=== PATIENT | female | born 1980 | race Caucasian/White ===

== ENCOUNTER 2017-03-27 04:47 | Emergency (ER) | payer MEDICARE, MEDICAID, SELFPAY ==
--- NOTE | 2017-03-27 05:36 | EDM.PDOC ---
ED HPI GENERAL MEDICAL PROBLEM - General Chief Complaint: Neurological Problem Stated Complaint: seizure Time Seen by Provider: 03/27/17 05:25 Source of Information: Reports: Patient, EMS History Limitations: Reports: No Limitations - History of Present Illness INITIAL COMMENTS - FREE TEXT/NARRATIVE: Ambulance was called to home by boyienangeline and he reported that she was acting weird and questioned if she had a seizure. EMT reports that she was alert but very diaphoretic. She denied any pain there. When arriving here she was alert and oriented and states that her and her boyfriend had a fight and he called them to make her mad. She denies any pain. Doesn't now why she was up at this time and states that she was just going to go to bed when the ambulance arrived. She was slightly diaphoretic at the time. Not incontinent. She denies having a seizure. Onset: Today - Related Data Allergies Allergy/AdvReac Type Severity Reaction Status Date / Time clindamycin Allergy Burning on Verified 11/16/16 03:20 Urination Home Meds: Home Meds Gabapentin [Neurontin] 300 mg PO BEDTIME 09/19/16 [History] Lurasidone HCl [Latuda] 60 mg PO DAILY 09/19/16 [History] Propranolol HCl [Propranolol] 20 mg PO BID 09/19/16 [History] lamoTRIgine [Lamictal] 200 mg PO DAILY 09/19/16 [History] Venlafaxine [Effexor] 75 mg PO DAILY 11/16/16 [History] buPROPion [Wellbutrin] 300 mg PO DAILY 11/16/16 [History] traZODone 50 mg PO BEDTIME 11/16/16 [History] OLANZapine [Olanzapine] 5 mg PO BID 03/27/17 [History] Prazosin HCl [Prazosin] 1 mg PO BEDTIME 03/27/17 [History] Past Medical History Cardiovascular History: Reports: Heart Murmur Gastrointestinal History: Reports: GERD, PUD Genitourinary History: Reports: None Musculoskeletal History: Reports: Other (See Below) Other Musculoskeletal History: costocondritis Neurological History: Reports: Headaches, Chronic, Migraines, Vertigo Other Neuro History: hX OF ADHD Psychiatric History: Reports: Addiction, ADHD, Anxiety, Depression, Mood Swings , Psych Hospitalization(s) Hematologic History: Reports: Anemia, Blood Transfusion(s) - Past Surgical History HEENT Surgical History: Reports: Myringotomy w Tube(s) Female Surgical History: Reports: Section Musculoskeletal Surgical History: Reports: Carpal Tunnel Social & Family History - Family History Family Medical History: Noncontributory - Tobacco Use Smoking Status *Q: Current Every Day Smoker Years of Tobacco use: 22 Packs/Tins Daily: 1 - Caffeine Use Caffeine Use: Reports: None - Recreational Drug Use Recreational Drug Use: No Drug Use in Last 12 Months: Yes Recreational Drug Use Frequency: Not Used In Over 6 Months - Living Situation & Occupation Living situation: Reports: Single, with Significant Other Occupation: Unemployed ED ROS GENERAL - Review of Systems Review Of Systems: See Below Constitutional: Reports: Fever, Diaphoresis HEENT: Reports: No Symptoms Respiratory: Reports: Cough. Denies: Sputum Cardiovascular: Reports: No Symptoms GI/Abdominal: Reports: No Symptoms : Reports: No Symptoms Musculoskeletal: Reports: No Symptoms Skin: Reports: No Symptoms ED EXAM, NEURO - Physical Exam Exam: See Below Exam Limited By: No Limitations General Appearance: Alert, WD/WN, No Apparent Distress Ears: Normal External Exam, Normal Canal Nose: Normal Inspection Throat/Mouth: Normal Inspection, Normal Oropharynx, No Airway Compromise Head Exam: Atraumatic Neck: Normal Inspection, Supple Respiratory/Chest: No Respiratory Distress, Rhonchi, Wheezing Cardiovascular: Regular Rate, Rhythm GI/Abdominal: Normal Bowel Sounds, Soft Neurological: Alert, Oriented x 3 Course - Vital Signs Last Recorded V/S: Last Vital Signs Temp 99.4 F 03/27/17 05:49 Pulse 96 03/27/17 05:49 Resp 20 03/27/17 05:49 BP 128/96 H 03/27/17 05:49 Pulse Ox 96 03/27/17 05:49 - Orders/Labs/Meds Orders: Active Orders 24 hr Category Date Time Status DRUG SCREEN URINE BIORAD [URCHEM] Stat Lab 03/27/17 05:32 Uncollected LAMOTRIGINE [REF] Stat Lab 03/27/17 05:34 Ordered Labs: Laboratory Tests 03/27/17 03/27/17 03/27/17 Range/Units 05:33 05:33 05:45 WBC 12.6 H (5.0-10.0) 10^3/uL RBC 4.03 (4.00-5.50) 10^6/uL Hgb 11.2 L (12.0-16.0) g/dL Hct 35.4 L (37.0-47.0) % MCV 87.8 (82.0-94.0) fL MCH 27.8 (27.0-32.0) pg MCHC 31.6 L (33.0-38.0) g/dL RDW Coeff of Иван 15.6 H (11.0-15.0) % Plt Count 494 H (150-400) 10^3/uL Neut % (Auto) 72.0 (35-85) % Lymph % (Auto) 15.8 (10-55) % [place] % (Auto) 8.7 (0-16) % Eos % (Auto) 3.3 (0-5) % Baso % (Auto) 0.2 (0-3) % Neut # (Auto) 9.04 H (1.80-7.00) 10^3/uL Lymph # (Auto) 1.98 (1.00-4.80) 10^3/uL [place] # (Auto) 1.09 H (0.00-0.80) 10^3/uL Eos # (Auto) 0.42 (0.00-0.45) 10^3/uL Baso # (Auto) 0.03 10^3/uL Sodium 138 (136-145) mEq/L Potassium 4.6 (3.5-5.0) mEq/L Chloride 101 (98-106) mEq/L Carbon Dioxide 27 (21-32) mmol/L BUN 13 (7-18) mg/dL Creatinine 1.1 H (0.6-1.0) mg/dL Est Cr Clr Drug Dosing 64.23 mL/min Estimated GFR (MDRD) 57 L (>=60) mL/min Glucose 112 H (75-99) mg/dL Calcium 8.2 L (8.4-10.1) mg/dL Urine Color Yellow (YELLOW) Urine Appearance Clear (CLEAR) Urine pH 6.5 (4.5-8.0) Ur Specific [place] 1.020 (1.003-1.020) Urine Protein Negative (NEGATIVE) mg/dL Urine Glucose (UA) Negative (NEGATIVE) mg/dL Urine Ketones Negative (NEGATIVE) mg/dL Urine Occult Blood Negative (NEGATIVE) Urine Nitrite Negative (NEGATIVE) Urine Bilirubin Negative (NEGATIVE) Urine Urobilinogen 0.2 (0.2-1.0) EU/dL Ur Leukocyte Esterase Negative (NEGATIVE) Urine RBC Not seen (0-5) /HPF Urine WBC Not seen (0-5) /HPF - Re-Assessments/Exams Free Text/Narrative Re-Assessment/Exam: 03/27/17 06:37 In to review labs with pt. Elevated WBC noted with low grade temp and wheezing noted Departure - Departure Time of Disposition: 06:38 Disposition: Home, Self-Care 01 Condition: good Clinical Impression: Bronchitis - Discharge Information Forms: ED Department Discharge Additional Instructions: z-shara- take 2 tablets when you get them this morning then 1 tablet daily for the next 4 days Stop smoking push fluids as much as possible Recheck in the clinic if not improving. - Problem List & Annotations (1) Bronchitis SNOMED Code(s): 57435629 Code(s): J40 - BRONCHITIS, NOT SPECIFIED ACUTE OR CHRONIC Status: Acute Priority: High Current Visit: Yes - Problem List Review Problem List Initiated/Reviewed/Updated: Yes - My Orders Last 24 Hours: My Active Orders 03/27/17 05:32 DRUG SCREEN URINE BIORAD [URCHEM] Stat 03/27/17 05:34 LAMOTRIGINE [REF] Stat - Assessment/Plan Last 24 Hours: My Active Orders 03/27/17 05:32 DRUG SCREEN URINE BIORAD [URCHEM] Stat 03/27/17 05:34 LAMOTRIGINE [REF] Stat
[2017-03-27 05:47] VITALS: BP 128/96
== END 2017-03-27 06:50 | disposition home or self-care (01) ==
LOC: CC.ED 04:47
DX: J40 Bronchitis, not specified as acute or chronic (principal); K21.9 Gastro-esophageal reflux disease without esophagitis; G43.909 Migraine, unspecified, not intractable, without status migrainosus; F41.9 Anxiety disorder, unspecified; F32.9 Major depressive disorder, single episode, unspecified; F17.210 Nicotine dependence, cigarettes, uncomplicated; Z88.1 Allergy status to other antibiotic agents; Z79.899 Other long term (current) drug therapy; Z98.890 Other specified postprocedural states
CPT/HCPCS: 36415; 80048; 80175; 80305; 81001; 85025; 99284

== ENCOUNTER 2017-05-25 00:13 | Emergency (ER) | payer MEDICARE, MEDICAID, SELFPAY ==
[2017-05-25 00:29] VITALS: BP 118/67
[2017-05-25] MEDS ORDERED: Take Home: Acetaminophen/HYDROcodone 325-5 MG, 2 Tab Pack PO ONE (00:51)
[2017-05-25] MEDS ORDERED: Ciprofloxacin 500 MG Tab PO ONE (00:52)
--- NOTE | 2017-05-25 00:56 | EDM.PDOC ---
ED HPI GENERAL MEDICAL PROBLEM - General Chief Complaint: Back Pain or Injury Stated Complaint: LEFT LOWER BACK PAIN Time Seen by Provider: 05/25/17 00:15 - History of Present Illness INITIAL COMMENTS - FREE TEXT/NARRATIVE: has been having severe left lower back pain for the last week, NSAIDS are not woring. Onset: Gradual Duration: Day(s): Location: Reports: Back Improves with: Reports: None Worsens with: Reports: Movement Associated Symptoms: Reports: No Other Symptoms Left Lower Back Pain Score (Numeric/FACES): 10 - Related Data Allergies Allergy/AdvReac Type Severity Reaction Status Date / Time clindamycin Allergy Nausea Verified 05/25/17 00:31 Home Meds: Home Meds Gabapentin [Neurontin] 300 mg PO BEDTIME 09/19/16 [History] Lurasidone HCl [Latuda] 60 mg PO DAILY 09/19/16 [History] Propranolol HCl [Propranolol] 20 mg PO BID 09/19/16 [History] lamoTRIgine [Lamictal] 200 mg PO DAILY 09/19/16 [History] Venlafaxine [Effexor] 75 mg PO DAILY 11/16/16 [History] buPROPion [Wellbutrin] 300 mg PO DAILY 11/16/16 [History] traZODone 50 mg PO BEDTIME 11/16/16 [History] OLANZapine [Olanzapine] 5 mg PO BID 03/27/17 [History] Prazosin HCl [Prazosin] 1 mg PO BEDTIME 03/27/17 [History] Past Medical History Cardiovascular History: Reports: Heart Murmur Gastrointestinal History: Reports: GERD, PUD Genitourinary History: Reports: None Musculoskeletal History: Reports: Other (See Below) Other Musculoskeletal History: costocondritis Neurological History: Reports: Headaches, Chronic, Migraines, Vertigo Other Neuro History: hX OF ADHD Psychiatric History: Reports: Addiction, ADHD, Anxiety, Depression, Mood Swings , Psych Hospitalization(s) Hematologic History: Reports: Anemia, Blood Transfusion(s) - Past Surgical History HEENT Surgical History: Reports: Myringotomy w Tube(s) Female Surgical History: Reports: Section Musculoskeletal Surgical History: Reports: Carpal Tunnel Social & Family History - Family History Family Medical History: Noncontributory - Tobacco Use Smoking Status *Q: Current Every Day Smoker Years of Tobacco use: 22 Packs/Tins Daily: 1 Second Hand Smoke Exposure: Yes - Caffeine Use Caffeine Use: Reports: None - Recreational Drug Use Recreational Drug Use: No Drug Use in Last 12 Months: Yes Recreational Drug Use Frequency: Not Used In Over 6 Months - Living Situation & Occupation Living situation: Reports: Single, with Significant Other Occupation: Unemployed ED ROS GENERAL - Review of Systems Review Of Systems: ROS reveals no pertinent complaints other than HPI. ED EXAM,LOWER BACK PAIN/INJURY - Physical Exam Exam: See Below Exam Limited By: No Limitations General Appearance: Alert, WD/WN Throat/Mouth: Normal Inspection Head: Atraumatic Neck: Normal Inspection Respiratory/Chest: No Respiratory Distress Cardiovascular: Normal Peripheral Pulses GI/Abdominal: Normal Bowel Sounds Rectal (Female) Exam: Normal Exam Back Exam: Normal Inspection Extremities: Normal Inspection Neurological: Alert, Normal Mood/Affect Psychiatric: Normal Affect Skin Exam: Warm, Dry Course - Vital Signs Last Recorded V/S: Last Vital Signs Temp 97.2 F 05/25/17 00:26 Pulse 70 05/25/17 00:26 Resp 20 05/25/17 00:26 BP 118/67 05/25/17 00:26 Pulse Ox 96 05/25/17 00:26 - Orders/Labs/Meds Orders: Active Orders 24 hr Category Date Time Status Lumbar Spine 2 or 3V [CR] Stat Exams 05/25/17 00:14 Taken Ciprofloxacin [Ciprofloxacin HCl] Med 05/25/17 00:52 Once 500 mg PO 0700,1900 ONE Medication Orders Ciprofloxacin (Ciprofloxacin Hcl) 500 mg PO 0700,1900 ONE Stop: 05/25/17 00:53 Labs: Laboratory Tests 05/25/17 Range/Units 00:16 Urine Color [place] (YELLOW) Urine Appearance Slightly cloudy (CLEAR) Urine pH 5.5 (4.5-8.0) Ur Specific [place] 1.006 (1.003-1.020) Urine Protein Trace H (NEGATIVE) mg/dL Urine Glucose (UA) Negative (NEGATIVE) mg/dL Urine Ketones Negative (NEGATIVE) mg/dL Urine Occult Blood Large H (NEGATIVE) Urine Nitrite Negative (NEGATIVE) Urine Bilirubin Negative (NEGATIVE) Urine Urobilinogen 0.2 (0.2-1.0) EU/dL Ur Leukocyte Esterase Trace H (NEGATIVE) Urine RBC >100 H (0-5) /HPF Urine WBC 5-10 H (0-5) /HPF Ur Squamous Epith Cells Few H (NOT SEEN) /HPF Urine Bacteria Occasional H (NOT SEEN) /HPF Meds: Medications Generic Name Dose Route Start Last Admin Trade Name Freq PRN Reason Stop Dose Admin Ciprofloxacin 500 mg 05/25/17 00:52 Ciprofloxacin Hcl PO 05/25/17 00:53 699,0 ONE Discontinued Medications Generic Name Dose Route Start Last Admin Trade Name Freq PRN Reason Stop Dose Admin Hydrocodone Bitart/Acetaminophen 3 packet 05/25/17 00:51 Take Home: Acetaminophen/Hydrocod, 2 Tab Pack PO 05/25/17 00:52 ONETIME ONE Departure - Departure Time of Disposition: 00:54 Disposition: Home, Self-Care 01 Condition: Good Clinical Impression: Lumbago, UTI (urinary tract infection) - Discharge Information Instructions: Back Injury Prevention, [id number] Forms: ED Department Discharge - My Orders Last 24 Hours: My Active Orders 05/25/17 00:14 Lumbar Spine 2 or 3V [CR] Stat 05/25/17 00:52 Ciprofloxacin [Ciprofloxacin HCl] 500 mg PO 699,0 ONE - Assessment/Plan Last 24 Hours: My Active Orders 05/25/17 00:14 Lumbar Spine 2 or 3V [CR] Stat 05/25/17 00:52 Ciprofloxacin [Ciprofloxacin HCl] 500 mg PO 699,1900 ONE
[2017-05-25] MEDS ORDERED: Acetaminophen/HYDROcodone 325-5 MG Tab PO ONE (10:00)
== END 2017-05-25 01:45 | disposition home or self-care (01) ==
LOC: CC.ED 00:13
DX: N39.0 Urinary tract infection, site not specified (principal); K21.9 Gastro-esophageal reflux disease without esophagitis; F32.9 Major depressive disorder, single episode, unspecified; F17.210 Nicotine dependence, cigarettes, uncomplicated; F90.2 Attention-deficit hyperactivity disorder, combined type; F41.9 Anxiety disorder, unspecified; Z79.899 Other long term (current) drug therapy; Z88.1 Allergy status to other antibiotic agents; Z96.22 Myringotomy tube(s) status
CPT/HCPCS: 72100; 81001; 99283; A9270

== ENCOUNTER 2017-06-07 16:10 | Emergency (ER) | payer MEDICARE, MEDICAID, SELFPAY ==
[2017-06-07 16:16] VITALS: BP 161/113
--- NOTE | 2017-06-07 17:05 | EDM.PDOC ---
ED HPI GENERAL MEDICAL PROBLEM - General Chief Complaint: General Stated Complaint: left side pain Time Seen by Provider: 06/07/17 16:30 Source of Information: Reports: Patient, RN History Limitations: Reports: No Limitations - History of Present Illness Onset Date: 02/03/17 Onset Time: 08:00 Duration: Chronic, Waxing/Waning Location: Reports: Abdomen, Lower Extremity, Left Quality: Reports: Ache, Burning, Pressure Severity: Moderate Improves with: Reports: Rest, Other (Minimal relief with Tramadol) Worsens with: Reports: Movement (Coughing) Associated Symptoms: Reports: Cough, cough w sputum Treatments [employer]: Reports: Acetaminophen, NSAIDS, Other Medication(s) Left Chest Pain Score (Numeric/FACES): 8 - Related Data Allergies Allergy/AdvReac Type Severity Reaction Status Date / Time clindamycin Allergy Nausea Verified 05/25/17 00:31 Home Meds: Home Meds Gabapentin [Neurontin] 300 mg PO BEDTIME 09/19/16 [History] Propranolol HCl [Propranolol] 20 mg PO BID 09/19/16 [History] lamoTRIgine [Lamictal] 200 mg PO DAILY 09/19/16 [History] Venlafaxine [Effexor] 75 mg PO DAILY 11/16/16 [History] traZODone 50 mg PO BEDTIME 11/16/16 [History] OLANZapine [Olanzapine] 5 mg PO BID 03/27/17 [History] Prazosin HCl [Prazosin] 1 mg PO BEDTIME 03/27/17 [History] Lisdexamfetamine Dimesylate [Vyvanse] 40 mg PO DAILY 06/07/17 [History] Omeprazole 20 mg PO DAILY 06/07/17 [History] atoMOXetine HCl [Strattera] 40 mg PO BID 06/07/17 [History] traMADol [Ultram] 50 mg PO Q4H 06/07/17 [History] valACYclovir [Valtrex] 1,000 mg PO DAILY 06/07/17 [History] Past Medical History Cardiovascular History: Reports: Heart Murmur Respiratory History: Reports: Bronchitis, Recurrent Gastrointestinal History: Reports: GERD, PUD Genitourinary History: Reports: None Musculoskeletal History: Reports: Other (See Below) Other Musculoskeletal History: costocondritis Neurological History: Reports: Headaches, Chronic, Migraines, Vertigo Other Neuro History: hX OF ADHD Psychiatric History: Reports: ADHD, Addiction, Anxiety, Depression, Mood Swings , Psych Hospitalization(s), Other (See Below) (Mental Health Provider in [place]) Hematologic History: Reports: Anemia, Blood Transfusion(s) - Past Surgical History HEENT Surgical History: Reports: Myringotomy w Tube(s) Female Surgical History: Reports: Section Musculoskeletal Surgical History: Reports: Carpal Tunnel Social & Family History - Family History Family Medical History: Noncontributory - Tobacco Use Smoking Status *Q: Current Every Day Smoker Years of Tobacco use: 23 Packs/Tins Daily: 1 Second Hand Smoke Exposure: Yes - Tobacco Core Measures Tobacco Use/Smoking Within Last 30 Days: Yes - Caffeine Use Caffeine Use: Reports: Soda - Recreational Drug Use Recreational Drug Use: Yes Drug Use in Last 12 Months: No Recreational Drug Type: Reports: Cocaine, Methamphetamine Recreational Drug Use Frequency: Not Used In Over 6 Months - Sexual History Sexual History: Reports: Sexually Active (Tubal Ligation- 2 Para-do not live with patient) - Living Situation & Occupation Living situation: Reports: Single, with Significant Other Occupation: Other (Boyfriend in snf for driving suspended license) ED ROS GENERAL - Review of Systems Review Of Systems: See Below Constitutional: Reports: Fatigue, Night Sweats, Weight Gain HEENT: Reports: Glasses Respiratory: Reports: Wheezing, Pleuritic Chest Pain, Cough. Denies: Shortness of Breath Cardiovascular: Reports: Chest Pain, Blood Pressure Problem Endocrine: Reports: Fatigue GI/Abdominal: Reports: Abdominal Pain. Denies: Hematemesis, Melena, Nausea, Vomiting : Reports: No Symptoms Musculoskeletal: Reports: Leg Pain Skin: Reports: No Symptoms Neurological: Reports: No Symptoms Psychiatric: Reports: Agitation, Anxiety, Depression. Denies: Hallucinations, Suicidal Ideation Hematologic/Lymphatic: Reports: No Symptoms Immunologic: Reports: No Symptoms (LMP 05/26/2017) ED EXAM, GENERAL - Physical Exam Exam: See Below Free Text/Narrative:: Patient with 4 month history of cough, congestion and LUQ pain radiating to the left hip region. Patient was seen by John Conklin and completed course of Augmentin for URI as well as course of steroids in attempt to decrease inflammation and aid in LLQ discomfort. She states she has been taking Tramadol as well with minimal relief. She was instructed to go to Physical THerapy but indicates non compliance with this treatment. She ths presents for evaluation and treatment. Exam Limited By: No Limitations General Appearance: Alert, WD/WN, No Apparent Distress, Other (Patient arrived riding bicycle from [facility] 4 blocks) Eye Exam: Bilateral Eye: EOMI, Normal Fundi, Normal Inspection Ears: Normal External Exam, Normal Canal, Hearing Grossly Normal, Normal TMs Ear Exam: Bilateral Ear: Auricle Normal, TM normal Nose: Normal Inspection, Normal Mucosa, No Blood Throat/Mouth: Normal Inspection, Normal Lips, Normal Teeth, Normal Gums, Normal Oropharynx, Normal Voice, No Airway Compromise Head: Atraumatic, Normocephalic Neck: Normal Inspection, Supple, Non-Tender, Full Range of Motion Respiratory/Chest: No Respiratory Distress, Lungs Clear, Normal Breath Sounds, No Accessory Muscle Use, Chest Non-Tender Cardiovascular: Normal Peripheral Pulses, Regular Rate, Rhythm, No Edema, No Gallop, No JVD, No Murmur Peripheral Pulses: 2+: Brachial (L), Brachial (R), Radial (L), Radial (R), Dorsalis Pedis (L), Dorsalis Pedis (R) GI/Abdominal: Normal Bowel Sounds, Soft (Pain in LUQ radiating to LLQ region to deep palpation. No rebound or guarding noted.) (Female) Exam: Deferred Rectal (Female) Exam: Deferred Back Exam: Normal Inspection, Full Range of Motion Extremities: Normal Inspection, Normal Range of Motion, Non-Tender, No Pedal Edema, Normal Capillary Refill. No: Alessandro's Sign Neurological: Alert, Oriented, CN II-XII Intact, Normal Cognition, Normal Gait, Normal Reflexes, No Motor/Sensory Deficits Psychiatric: Normal Affect, Normal Mood, Anxious, Depressed Mood Skin Exam: Warm, Dry, Intact, Normal Color, No Rash Lymphatic: No Adenopathy Course - Vital Signs Last Recorded V/S: Last Vital Signs Temp 36.6 C 06/07/17 16:14 Pulse 99 06/07/17 16:14 Resp 20 06/07/17 16:14 BP 161/113 H 06/07/17 16:14 Pulse Ox 98 06/07/17 16:14 - Orders/Labs/Meds Orders: Active Orders 24 hr Category Date Time Status Chest 2V [CR] Stat Exams 06/07/17 16:42 Taken Azithromycin [Zithromax] Med 06/07/17 17:34 Once 500 mg PO ONETIME ONE Medication Orders Azithromycin (Zithromax) 500 mg PO ONETIME ONE Stop: 06/07/17 17:35 Labs: Laboratory Tests 06/07/17 06/07/17 06/07/17 Range/Units 16:42 16:42 16:44 WBC 12.3 H (5.0-10.0) 10^3/uL RBC 4.19 (4.00-5.50) 10^6/uL Hgb 11.8 L (12.0-16.0) g/dL Hct 38.3 (37.0-47.0) % MCV 91.4 (82.0-94.0) fL MCH 28.2 (27.0-32.0) pg MCHC 30.8 L (33.0-38.0) g/dL RDW Coeff of Иван 17.1 H (11.0-15.0) % Plt Count 364 (150-400) 10^3/uL MPV 8.5 fL Sodium 141 (136-145) mEq/L Potassium 4.3 (3.5-5.0) mEq/L Chloride 104 (98-106) mEq/L Carbon Dioxide 28 (21-32) mmol/L BUN 12 (7-18) mg/dL Creatinine 0.8 (0.6-1.0) mg/dL Est Cr Clr Drug Dosing 88.32 mL/min Estimated GFR (MDRD) > 60 (>=60) mL/min Glucose 85 (75-99) mg/dL Calcium 8.9 (8.4-10.1) mg/dL Total Bilirubin 0.2 (0.0-1.0) mg/dL AST 13 L (15-37) U/L ALT 26 (12-78) U/L Alkaline Phosphatase 111 (46-116) U/L C-Reactive Protein < 0.2 L (0.2-0.8) mg/dL Total Protein 6.9 (6.4-8.2) g/dL Albumin 3.1 L (3.4-5.0) g/dL Urine Color Yellow (YELLOW) Urine Appearance Clear (CLEAR) Urine pH 5.0 (4.5-8.0) Ur Specific [place] 1.020 (1.003-1.020) Urine Protein Negative (NEGATIVE) mg/dL Urine Glucose (UA) Negative (NEGATIVE) mg/dL Urine Ketones Negative (NEGATIVE) mg/dL Urine Occult Blood Negative (NEGATIVE) Urine Nitrite Negative (NEGATIVE) Urine Bilirubin Negative (NEGATIVE) Urine Urobilinogen 0.2 (0.2-1.0) EU/dL Ur Leukocyte Esterase Negative (NEGATIVE) Urine RBC Not seen (0-5) /HPF Urine WBC Not seen (0-5) /HPF Urine Opiates Screen (NEGATIVE) Ur Oxycodone Screen (NEGATIVE) Urine Methadone Screen (NEGATIVE) Ur Barbiturates Screen (NEGATIVE) U Tricyclic Antidepress (NEGATIVE) Ur Phencyclidine Scrn (NEGATIVE) Ur Amphetamine Screen (NEGATIVE) U Methamphetamines Scrn (NEGATIVE) Urine MDMA Screen (NEGATIVE) U Benzodiazepines Scrn (NEGATIVE) Urine Cocaine Screen (NEGATIVE) U Marijuana (THC) Screen (NEGATIVE) 06/07/17 Range/Units 16:44 WBC (5.0-10.0) 10^3/uL RBC (4.00-5.50) 10^6/uL Hgb (12.0-16.0) g/dL Hct (37.0-47.0) % MCV (82.0-94.0) fL MCH (27.0-32.0) pg MCHC (33.0-38.0) g/dL RDW Coeff of Иван (11.0-15.0) % Plt Count (150-400) 10^3/uL MPV fL Sodium (136-145) mEq/L Potassium (3.5-5.0) mEq/L Chloride (98-106) mEq/L Carbon Dioxide (21-32) mmol/L BUN (7-18) mg/dL Creatinine (0.6-1.0) mg/dL Est Cr Clr Drug Dosing mL/min Estimated GFR (MDRD) (>=60) mL/min Glucose (75-99) mg/dL Calcium (8.4-10.1) mg/dL Total Bilirubin (0.0-1.0) mg/dL AST (15-37) U/L ALT (12-78) U/L Alkaline Phosphatase (46-116) U/L C-Reactive Protein (0.2-0.8) mg/dL Total Protein (6.4-8.2) g/dL Albumin (3.4-5.0) g/dL Urine Color (YELLOW) Urine Appearance (CLEAR) Urine pH (4.5-8.0) Ur Specific [place] (1.003-1.020) Urine Protein (NEGATIVE) mg/dL Urine Glucose (UA) (NEGATIVE) mg/dL Urine Ketones (NEGATIVE) mg/dL Urine Occult Blood (NEGATIVE) Urine Nitrite (NEGATIVE) Urine Bilirubin (NEGATIVE) Urine Urobilinogen (0.2-1.0) EU/dL Ur Leukocyte Esterase (NEGATIVE) Urine RBC (0-5) /HPF Urine WBC (0-5) /HPF Urine Opiates Screen Negative (NEGATIVE) Ur Oxycodone Screen Negative (NEGATIVE) Urine Methadone Screen Negative (NEGATIVE) Ur Barbiturates Screen Negative (NEGATIVE) U Tricyclic Antidepress Negative (NEGATIVE) Ur Phencyclidine Scrn Negative (NEGATIVE) Ur Amphetamine Screen Positive H (NEGATIVE) U Methamphetamines Scrn Negative (NEGATIVE) Urine MDMA Screen Negative (NEGATIVE) U Benzodiazepines Scrn Negative (NEGATIVE) Urine Cocaine Screen Negative (NEGATIVE) U Marijuana (THC) Screen Negative (NEGATIVE) Meds: Medications Generic Name Dose Route Start Last Admin Trade Name Freq PRN Reason Stop Dose Admin Azithromycin 500 mg 06/07/17 17:34 Zithromax PO 06/07/17 17:35 ONETIME ONE Discontinued Medications Generic Name Dose Route Start Last Admin Trade Name Freq PRN Reason Stop Dose Admin Ketorolac Tromethamine 60 mg 06/07/17 17:33 Toradol IM 06/07/17 17:34 ONETIME ONE Departure - Departure Time of Disposition: 17:39 Disposition: Home, Self-Care 01 Condition: Good Clinical Impression: Depression Qualifiers: Depression Type: unspecified Qualified Code(s): F32.9 - Major depressive disorder, single episode, unspecified - Discharge Information Forms: ED Department Discharge Additional Instructions: Discussed with patient medications and antibiotic for atypical pneumonia-will start on Zithromax 500 mg now and Z-Pack Stop smoking Fluids and hydration. Toradol 60 mg IM for Myalgias and arthralgia in Left hip region Advised continue with PT as directed by PCP Re[facility]urance and discharged to home to see John Conklin PCP prn pain or discomfort or exacerbation of S/S. - Problem List Review Problem List Initiated/Reviewed/Updated: Yes - My Orders Last 24 Hours: My Active Orders 06/07/17 16:42 Chest 2V [CR] Stat 06/07/17 17:34 Azithromycin [Zithromax] 500 mg PO ONETIME ONE - Assessment/Plan Last 24 Hours: My Active Orders 06/07/17 16:42 Chest 2V [CR] Stat 06/07/17 17:34 Azithromycin [Zithromax] 500 mg PO ONETIME ONE Assessment:: Chronic Bronchitis Tobacco Use Borderline Personality LUQ Pain Costochrondritis Plan: Discussed with patient medications and antibiotic for atypical pneumonia-will start on Zithromax 500 mg now and Z-Pack Stop smoking Fluids and hydration. Toradol 60 mg IM for Myalgias and arthralgia in Left hip region Advised continue with PT as directed by PCP Reassurance and discharged to home to see John Conklin PCP prn pain or discomfort or exacerbation of S/S.
[2017-06-07 17:09] LABS: CHLORIDE,CL 104 mEq/L (98-106); SODIUM,NA 141 mEq/L (136-145)
[2017-06-07] MEDS ORDERED: Ketorolac 60 MG/2 ML SDV IM ONE (17:33)
[2017-06-07] MEDS ORDERED: Azithromycin 250 MG Tab PO ONE (17:34)
== END 2017-06-07 18:03 | disposition home or self-care (01) ==
LOC: CC.ED 16:10
DX: J42 Unspecified chronic bronchitis (principal); R10.12 Left upper quadrant pain; F60.3 Borderline personality disorder; F32.9 Major depressive disorder, single episode, unspecified; K21.9 Gastro-esophageal reflux disease without esophagitis; G43.909 Migraine, unspecified, not intractable, without status migrainosus; F90.9 Attention-deficit hyperactivity disorder, unspecified type; F41.9 Anxiety disorder, unspecified; D64.9 Anemia, unspecified; F17.210 Nicotine dependence, cigarettes, uncomplicated; Z96.22 Myringotomy tube(s) status; Z88.1 Allergy status to other antibiotic agents; Z79.899 Other long term (current) drug therapy
CPT/HCPCS: 36415; 71020; 80053; 80305; 81001; 85027; 86140; 96372; 99283; A9270; J1885; 99284

== ENCOUNTER 2017-06-12 05:54 | Emergency (ER) | payer MEDICARE, MEDICAID, SELFPAY ==
[2017-06-12 06:12] VITALS: BP 138/88
[2017-06-12] MEDS ORDERED: Ibuprofen 200 MG Tab PO ONE (06:23)
--- NOTE | 2017-06-12 06:29 | EDM.PDOC ---
ED HPI GENERAL MEDICAL PROBLEM - General Chief Complaint: General Stated Complaint: "pain to side" Time Seen by Provider: 06/12/17 06:09 Source of Information: Reports: Patient History Limitations: Reports: No Limitations - History of Present Illness INITIAL COMMENTS - FREE TEXT/NARRATIVE: Was seen in the ER here on 06/07/17 and was diagnosed with pneumonia and costochondritis. Was then seen in clinic by John Conklin on 06/09/17 and was told that she had pleurisy and was given toradol IM and Tramadol #20. She returns this morning stating that she has continued pain in the right rib area that woke her up at 0530 so she came back to the ER to be evaluated. She states that the pain is all on the right side. No SOB with it. Continues to smoke. Has not been taking the antiinflammatories that she had been told too. Last tramadol that she took was 8 pm last evening. States that she doesn't have many left. Did not take anything when she woke up in pain this am. Location: Reports: Chest Quality: Reports: Stabbing Worsens with: Reports: Movement Left Flank Pain Score (Numeric/FACES): 9 - Related Data Allergies Allergy/AdvReac Type Severity Reaction Status Date / Time clindamycin Allergy Nausea Verified 06/12/17 06:14 Home Meds: Home Meds Gabapentin [Neurontin] 300 mg PO BEDTIME 09/19/16 [History] Propranolol HCl [Propranolol] 20 mg PO BID 09/19/16 [History] lamoTRIgine [Lamictal] 200 mg PO DAILY 09/19/16 [History] Venlafaxine [Effexor] 75 mg PO DAILY 11/16/16 [History] traZODone 50 mg PO BEDTIME 11/16/16 [History] OLANZapine [Olanzapine] 5 mg PO BID 03/27/17 [History] Prazosin HCl [Prazosin] 1 mg PO BEDTIME 03/27/17 [History] Lisdexamfetamine Dimesylate [Vyvanse] 40 mg PO DAILY 06/07/17 [History] Omeprazole 20 mg PO DAILY 06/07/17 [History] atoMOXetine HCl [Strattera] 40 mg PO BID 06/07/17 [History] traMADol [Ultram] 50 mg PO Q4H 06/07/17 [History] valACYclovir [Valtrex] 1,000 mg PO DAILY 06/07/17 [History] Past Medical History Cardiovascular History: Reports: Heart Murmur Respiratory History: Reports: Bronchitis, Recurrent Gastrointestinal History: Reports: GERD, PUD Genitourinary History: Reports: None Musculoskeletal History: Reports: Other (See Below) Other Musculoskeletal History: costocondritis Neurological History: Reports: Headaches, Chronic, Migraines, Vertigo Other Neuro History: hX OF ADHD Psychiatric History: Reports: ADHD, Addiction, Anxiety, Depression, Mood Swings , Psych Hospitalization(s), Other (See Below) (Mental Health Provider in [place]) Hematologic History: Reports: Anemia, Blood Transfusion(s) - Past Surgical History HEENT Surgical History: Reports: Myringotomy w Tube(s) Female Surgical History: Reports: Section Musculoskeletal Surgical History: Reports: Carpal Tunnel Social & Family History - Family History Family Medical History: Noncontributory - Tobacco Use Smoking Status *Q: Current Every Day Smoker Years of Tobacco use: 17 Packs/Tins Daily: 1 Second Hand Smoke Exposure: Yes - Caffeine Use Caffeine Use: Reports: Soda - Recreational Drug Use Recreational Drug Use: Yes Drug Use in Last 12 Months: No Recreational Drug Type: Reports: Cocaine, Methamphetamine Recreational Drug Use Frequency: Not Used In Over 6 Months - Sexual History Sexual History: Reports: Sexually Active ([employer]- 2 Para-do not live with patient) - Living Situation & Occupation Living situation: Reports: Single, with Significant Other Occupation: Other (Boyfriend in senior living for driving suspended license) ED ROS GENERAL - Review of Systems Review Of Systems: See Below Constitutional: Denies: Fever, Chills Respiratory: Reports: Cough. Denies: Shortness of Breath Cardiovascular: Reports: No Symptoms GI/Abdominal: Reports: No Symptoms Musculoskeletal: Reports: Other (see HPI) Skin: Reports: No Symptoms Neurological: Reports: No Symptoms ED EXAM, GENERAL - Physical Exam Exam: See Below Exam Limited By: No Limitations General Appearance: Alert, WD/WN, Mild Distress Ears: Normal External Exam, Normal Canal, Normal TMs Ear Exam: Bilateral Ear: Auricle Normal, Canal Normal, TM normal Throat/Mouth: Normal Inspection, Normal Oropharynx, No Airway Compromise Head: Atraumatic, Normocephalic Neck: Normal Inspection, Supple, Non-Tender, Full Range of Motion Respiratory/Chest: No Respiratory Distress, Lungs Clear, Normal Breath Sounds Cardiovascular: Normal Peripheral Pulses, Regular Rate, Rhythm, Other (right sided chest pain with palpation and with movement. No bruising or redness or swelling noted.) GI/Abdominal: Normal Bowel Sounds, Soft, Non-Tender Extremities: Normal Range of Motion, No Pedal Edema Neurological: Alert, Oriented Skin Exam: Warm, Dry Course - Vital Signs Last Recorded V/S: Last Vital Signs Temp 97.4 F 06/12/17 06:10 Pulse 108 H 06/12/17 06:10 Resp 20 06/12/17 06:10 BP 138/88 06/12/17 06:10 Pulse Ox 99 06/12/17 06:10 - Orders/Labs/Meds Orders: Active Orders 24 hr Category Date Time Status Ibuprofen [Motrin] Med 06/12/17 06:23 Once 800 mg PO ONETIME ONE Departure - Departure Time of Disposition: 06:29 Disposition: Home, Self-Care 01 Clinical Impression: Costochondritis - Discharge Information Forms: ED Department Discharge Additional Instructions: Ibuprophen 800 mg take three times a day and be consistent with it. Heating pad to the right chest area Recheck in cliinic with John Conklin if any further concerns. - Problem List & Annotations (1) Costochondritis SNOMED Code(s): 56620457 Code(s): M94.0 - CHONDROCOSTAL JUNCTION SYNDROME [TIETZE] Status: Acute Priority: High - Problem List Review Problem List Initiated/Reviewed/Updated: Yes - My Orders Last 24 Hours: My Active Orders 06/12/17 06:23 Ibuprofen [Motrin] 800 mg PO ONETIME ONE - Assessment/Plan Last 24 Hours: My Active Orders 06/12/17 06:23 Ibuprofen [Motrin] 800 mg PO ONETIME ONE
== END 2017-06-12 06:35 | disposition home or self-care (01) ==
LOC: CC.ED 05:54
DX: M94.0 Chondrocostal junction syndrome [Tietze] (principal); K21.9 Gastro-esophageal reflux disease without esophagitis; G43.909 Migraine, unspecified, not intractable, without status migrainosus; F90.9 Attention-deficit hyperactivity disorder, unspecified type; F32.9 Major depressive disorder, single episode, unspecified; F41.9 Anxiety disorder, unspecified; Z86.79 Personal history of other diseases of the circulatory system; Z88.1 Allergy status to other antibiotic agents; Z79.899 Other long term (current) drug therapy; Z96.22 Myringotomy tube(s) status; Z98.51 Tubal ligation status
CPT/HCPCS: 99283; A9270